=== PATIENT | female | born 1955 | race Caucasian/White ===

== ENCOUNTER 2018-01-08 16:44 | Emergency (ER) | payer OTHER ==
[~2018-01-08] VITALS: Ht 154.9 cm; Wt 89.6 kg
[2018-01-08 17:36] LABS: HEMATOCRIT 39.4 % (36.0-46.0); HEMOGLOBIN 13.3 G/DL (11.9-15.5); MCH 29.4 PG (29.0-34.0); MCHC 33.8 G/DL (30.0-36.0); MCV 87.2 FL (83-99); PLATELET COUNT 294 K/uL (156-360); RBC DIS.WIDTH-CV 11.6 % (11.8-14.6); RBC DIS.WIDTH-SD 36.9 % (39-53); RED BLOOD COUNT 4.52 M/uL (3.80-5.20); WHITE BLOOD COUNT 11.9 K/uL (4.1-10.2)
[2018-01-08 17:51] LABS: ALBUMIN 4.1 g/dL (3.2-4.8)
[2018-01-08 17:52] LABS: CHLORIDE 104 mEq/L (99-109); POTASSIUM 3.6 mEq/L (3.7-5.4); SODIUM 140 mEq/L (136-147)
[2018-01-08 17:54] LABS: GLUCOSE 140 mg/dL (70-99); TOTAL PROTEIN 7.2 g/dL (6.4-8.3)
[2018-01-08 17:56] LABS: TOTAL BILIRUBIN 0.4 mg/dL (0.0-1.0)
[2018-01-08 17:56] LABS: TROP-I INTERPRETATION NEGATIVE; TROPONIN-I < 0.01 ng/mL (0.0-0.30)
[2018-01-08 17:57] LABS: ALKALINE PHOSPHATASE 103 IU/L (3-129); CREATININE 0.8 mg/dL (0.6-1.3); GFR ESTIMATE (CALCULATED) > 59 mL/min/
[2018-01-08 17:59] LABS: AST (GOT) 24 IU/L (2-34); UREA NITROGEN (BUN) 19 mg/dL (9-23)
[2018-01-08 18:00] LABS: ALT (GPT) 33 IU/L (3-49)
[2018-01-08 18:01] LABS: LIPASE 13 U/L (1.0-51.0)
[2018-01-08 22:03] LABS: TROP-I INTERPRETATION NEGATIVE; TROPONIN-I < 0.01 ng/mL (0.0-0.30)
[2018-01-08] MEDS ORDERED: ZOFRAN ODT4 MG PO (22:21)
[2018-01-08 22:43] VITALS: BP 174/98
== END 2018-01-08 22:43 | disposition home or self-care (01) ==
LOC: EME 16:44
PROVIDERS: Emergency Medicine
DX: R07.9 Chest pain, unspecified (principal); R11.0 Nausea; R00.2 Palpitations; M25.512 Pain in left shoulder; R10.11 Right upper quadrant pain; K76.0 Fatty (change of) liver, not elsewhere classified; I10 Essential (primary) hypertension
CPT/HCPCS: 71046; 76705; 80053; 83690; 84484; 85027; 93005; 99281; 99285

== ENCOUNTER 2018-01-19 13:10 | Emergency (ER) | payer OTHER ==
[~2018-01-19] VITALS: Ht 154.9 cm; Wt 86.9 kg
[~2018-01-19 13:10] MED LIST: ZOFRAN ODT4 MG PO
[2018-01-19 13:30] LABS: HEMOGLOBIN 14.3 G/DL (11.9-15.5); MCH 29.5 PG (29.0-34.0); MCHC 34.9 G/DL (30.0-36.0); MCV 84.5 FL (83-99); PLATELET COUNT 349 K/uL (156-360); RBC DIS.WIDTH-CV 11.5 % (11.8-14.6); RBC DIS.WIDTH-SD 35.2 % (39-53); RED BLOOD COUNT 4.85 M/uL (3.80-5.20); WHITE BLOOD COUNT 9.6 K/uL (4.1-10.2)
[2018-01-19 13:40] LABS: ALBUMIN 4.7 g/dL (3.2-4.8); CHLORIDE 99 mEq/L (99-109); POTASSIUM 2.9 mEq/L (3.7-5.4); SODIUM 138 mEq/L (136-147)
[2018-01-19 13:42] LABS: GLUCOSE 162 mg/dL (70-99); TOTAL PROTEIN 8.1 g/dL (6.4-8.3)
[2018-01-19 13:44] LABS: TOTAL BILIRUBIN 0.6 mg/dL (0.0-1.0)
[2018-01-19 13:46] LABS: ALKALINE PHOSPHATASE 108 IU/L (3-129); CREATININE 0.8 mg/dL (0.6-1.3); GFR ESTIMATE (CALCULATED) > 59 mL/min/
[2018-01-19 13:47] LABS: AST (GOT) 27 IU/L (2-34); UREA NITROGEN (BUN) 13 mg/dL (9-23)
[2018-01-19 13:49] LABS: ALT (GPT) 37 IU/L (3-49); LIPASE 17 U/L (1.0-51.0)
[2018-01-19 13:52] LABS: TROP-I INTERPRETATION NEGATIVE; TROPONIN-I < 0.01 ng/mL (0.0-0.30)
[2018-01-19] MEDS ORDERED: ULTRACET1 TABLET PO (13:58)
[2018-01-19 14:09] VITALS: BP 147/74
== END 2018-01-19 14:20 | disposition home or self-care (01) ==
LOC: EME 13:10
DX: M54.2 Cervicalgia (principal); M25.512 Pain in left shoulder; R10.10 Upper abdominal pain, unspecified; H92.09 Otalgia, unspecified ear; R22.1 Localized swelling, mass and lump, neck
CPT/HCPCS: 80053; 83690; 84484; 85027; 93005; 99281; 99285

== ENCOUNTER 2018-01-22 15:25 | Emergency (ER) | payer OTHER ==
[~2018-01-22] VITALS: Ht 154.9 cm; Wt 85.8 kg
[~2018-01-22 15:25] MED LIST changes: +ULTRACET1 TABLET PO
[2018-01-22 16:48] LABS: HEMATOCRIT 41.9 % (36.0-46.0); HEMOGLOBIN 14.6 G/DL (11.9-15.5); MCH 29.6 PG (29.0-34.0); MCHC 34.8 G/DL (30.0-36.0); MCV 84.8 FL (83-99); PLATELET COUNT 374 K/uL (156-360); RBC DIS.WIDTH-CV 11.5 % (11.8-14.6); RBC DIS.WIDTH-SD 35.3 % (39-53); RED BLOOD COUNT 4.94 M/uL (3.80-5.20); WHITE BLOOD COUNT 11.4 K/uL (4.1-10.2)
[2018-01-22 17:00] LABS: CHLORIDE 98 mEq/L (99-109); SODIUM 140 mEq/L (136-147)
[2018-01-22 17:05] LABS: CREATININE 0.8 mg/dL (0.6-1.3); GFR ESTIMATE (CALCULATED) > 59 mL/min/
[2018-01-22 17:10] LABS: TROP-I INTERPRETATION NEGATIVE; TROPONIN-I < 0.01 ng/mL (0.0-0.30)
[2018-01-22 17:23] LABS: GLUCOSE 99 mg/dL (70-99)
[2018-01-22 17:28] LABS: UREA NITROGEN (BUN) 17 mg/dL (9-23)
[2018-01-22] MEDS ORDERED: AUGMENTIN875 MG PO (19:45)
[2018-01-22 21:00] VITALS: BP 140/92
== END 2018-01-22 21:00 | disposition home or self-care (01) ==
LOC: EXP 15:25 → EME 15:25 → EXP 21:00
DX: R22.0 Localized swelling, mass and lump, head (principal); R22.1 Localized swelling, mass and lump, neck; M54.2 Cervicalgia; J02.9 Acute pharyngitis, unspecified; R06.02 Shortness of breath
CPT/HCPCS: 70360; 71046; 80048; 84484; 85027; 93005; 99281; 99285

== ENCOUNTER → 2018-02-06 | Outpatient (CLI) | payer OTHER ==
[~2018-02-06] VITALS: Ht 154.9 cm; Wt 83.9 kg
[~2018-02-06] MED LIST changes: +ACID CONTROL150 MG PO; +AUGMENTIN875 MG PO; +COZAAR100 MG PO; +FLEXERIL10 MG PO; +HYDROCHLOROTHIA25 MG PO; +PREDNISONE20 MG PO; +PROTONIX40 MG PO; +TOPROL XL25 MG PO
== END | disposition home or self-care (01) ==
LOC: AMB 12:00
PROC: 0DB68ZX Excision of Stomach, Via Natural or Artificial Opening Endoscopic, Diagnostic (ICD-10-PCS; principal; 2018-02-06)
DX: K31.7 Polyp of stomach and duodenum (principal); K44.9 Diaphragmatic hernia without obstruction or gangrene; R10.84 Generalized abdominal pain; K76.0 Fatty (change of) liver, not elsewhere classified; K21.9 Gastro-esophageal reflux disease without esophagitis; E11.9 Type 2 diabetes mellitus without complications; I10 Essential (primary) hypertension; E66.9 Obesity, unspecified; Z68.36 Body mass index [BMI] 36.0-36.9, adult; Z90.49 Acquired absence of other specified parts of digestive tract; Z90.710 Acquired absence of both cervix and uterus; Z90.721 Acquired absence of ovaries, unilateral; Z82.49 Family history of ischemic heart disease and other diseases of the circulatory system; Z83.3 Family history of diabetes mellitus; Z87.891 Personal history of nicotine dependence
CPT/HCPCS: 84132; 88305; 88342 TC; 93005; J2250

== ENCOUNTER 2018-02-20 11:02 | Emergency (ER) | payer OTHER ==
[~2018-02-20] VITALS: Ht 154.9 cm; Wt 83.7 kg
[2018-02-20 12:10] LABS: HEMATOCRIT 39.1 % (36.0-46.0); MCH 30.2 PG (29.0-34.0); MCHC 35.8 G/DL (30.0-36.0); MCV 84.4 FL (83-99); PLATELET COUNT 359 K/uL (156-360); RBC DIS.WIDTH-CV 12.1 % (11.8-14.6); RBC DIS.WIDTH-SD 36.8 % (39-53); RED BLOOD COUNT 4.63 M/uL (3.80-5.20); WHITE BLOOD COUNT 11.3 K/uL (4.1-10.2)
[2018-02-20 12:20] LABS: CHLORIDE 100 mEq/L (99-109); POTASSIUM 3.3 mEq/L (3.7-5.4); SODIUM 142 mEq/L (136-147)
[2018-02-20 12:22] LABS: GLUCOSE 102 mg/dL (70-99)
[2018-02-20 12:26] LABS: CREATININE 0.9 mg/dL (0.6-1.3); GFR ESTIMATE (CALCULATED) > 59 mL/min/
[2018-02-20 12:27] LABS: UREA NITROGEN (BUN) 15 mg/dL (9-23)
[2018-02-20] MEDS ORDERED: GLIPIZIDE XL5 MG PO (13:08)
[2018-02-20] MEDS ORDERED: ACETAMINOPHN-T1 EACH PO (13:09)
[2018-02-20 15:28] LABS: THYROTROPIN (TSH) 1.2 MIU/L (0.4-5.5)
[2018-02-20 18:05] VITALS: BP 136/82
== END 2018-02-20 18:20 | disposition home or self-care (01) ==
LOC: EME 11:02
DX: J02.9 Acute pharyngitis, unspecified (principal); K21.9 Gastro-esophageal reflux disease without esophagitis; F41.9 Anxiety disorder, unspecified; I10 Essential (primary) hypertension; E11.9 Type 2 diabetes mellitus without complications
CPT/HCPCS: 70490; 80048; 84443; 85027; 99281; 99285